=== PATIENT | female | born 1965 | race Caucasian/White ===

== ENCOUNTER 2017-04-06 13:54 | Outpatient (CLI) | payer OTHER ==
[2017-04-06 15:23] LABS: Hemoglobin 14.6 g/dL (12.0-16.0); Mean Corpuscular HGB CONC 33.5 g/dL (32.0-36.0); Mean Corpuscular Hemoglobin 32.6 pg (27.0-31.0); Mean Corpuscular Volume 97.4 fl (81.0-99.0); Platelet Count 222 thou/uL (130-400); Red Blood Cell (RBC) Count 4.49 mill/uL (4.20-5.40); White Blood Cell (WBC) Count 7.4 thou/uL (4.8-10.8)
[2017-04-06 15:29] LABS: PTT 26.7 SEC (22.9-36.1)
[2017-04-06 15:34] LABS: Prothrombin Time 13.3 SEC (12.0-14.7)
[2017-04-06 15:44] LABS: ALT (SGPT) 23 U/L (8-55); AST (SGOT) 19 U/L (5-34); Albumin 4.6 g/dL (3.5-5.0); Alkaline Phosphatase 84 U/L (40-150); Anion Gap 15 mmol/L (10-20); BUN (Urea Nitrogen) 15 mg/dL (9.8-20.1); Bilirubin, Total 0.5 mg/dL (0.2-1.2); Calc. Creatinine Clearance 0 mL/min (70-130); Calcium 9.9 mg/dL (7.8-10.44); Carbon Dioxide 27 mmol/L (22-29); Chloride 106 mmol/L (98-107); Estimated GFR-MDRD 55; Globulin 2.8 g/dL (2.4-3.5); Glucose 103 mg/dL (70-105); Potassium 4.5 mmol/L (3.5-5.1); Protein, Total 7.4 g/dL (6.0-8.3); Sodium 143 mmol/L (136-145)
--- NOTE | 2017-04-15 19:29 | EKG ---
Test Reason : Blood Pressure : / mmHG Vent. Rate : 088 BPM Atrial Rate : 088 BPM P-R Int : 174 ms QRS Dur : 140 ms QT Int : 400 ms P-R-T Axes : 031 003 015 degrees QTc Int : 484 ms Normal sinus rhythm Left bundle branch block Abnormal ECG No previous ECGs available Confirmed by OLI INMAN (2) on 04/15/2017 7:29:05 PM Referred By: REINA Confirmed By:OLI INMAN
== END 2017-04-06 13:55 | disposition home or self-care (01) ==
LOC: LABBT 13:54
PROVIDERS: ATTEND Internal Medicine Cardiovascular Disease
DX: Z01.818 Encounter for other preprocedural examination (principal); R94.30 Abnormal result of cardiovascular function study, unspecified
CPT/HCPCS: 80053; 85027; 85610; 85730; 93005; 93010

== ENCOUNTER 2017-04-08 05:54 | Day surgery (SDC) | payer OTHER ==
[2017-04-06 14:34] VITALS: BMI 31.1
[2017-04-08 07:06] LABS: Cardiac Risk 3.6 (Less than 4.5)
[2017-04-08] MEDS ORDERED: Midazolam HCl 2 mg/2 ml Vial ONE (09:10)
[2017-04-08] MEDS ORDERED: Fentanyl 100 MCG/2 ML VIAL ONE (09:14)
[2017-04-08] MEDS ORDERED: Iopamidol 370 76% 100 ML VIAL ONE (16:41)
== END 2017-04-08 13:09 | disposition home or self-care (01) ==
LOC: CCL 05:54
PROVIDERS: ATTEND Internal Medicine Cardiovascular Disease
DX: I25.10 Atherosclerotic heart disease of native coronary artery without angina pectoris (principal); Z91.013 Allergy to seafood; Z88.8 Allergy status to other drugs, medicaments and biological substances
CPT/HCPCS: 80061; 93458; 93798; 99152; C1769; J1644; J2250; J3010

== ENCOUNTER 2017-09-07 07:37 | Outpatient (CLI) | payer OTHER ==
--- NOTE | 2017-09-07 09:22 | MRI ---
MRI RIGHT HIP WITHOUT CONTRAST: HISTORY: 73.101A, unspecified sprain of right hip initial encounter. COMPARISON: None. FINDINGS: BONES: Left hip arthroplasty causes extensive artifact of the adjacent soft tissues. There is a small focus of avascular necrosis of the superior articular surface of the right femoral head without significan t articular surface collapse. There is T1 hypointense signal as well as T2 hyperintense signal withi n the area of avascular necrosis. No articular surface collapse. No stress edema of the acetabulum nor of the sacrum. There is mild edema of the pubic symphysis as w ell as extensive degenerative disease. TENDONS: There is marked extensive partial tearing of the gluteus medias tendon near its insertion in the grea ter trochanter. Mild iliopsoas tendinosis. 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 INTRAPELVIC SOFT TISSUES: Unremarkable. LABRUM: Evaluation of the labrum is limited without intraarticular contrast. No displaced labral tear is theresa reciated. There is moderate chondral thinning of the femoral head without significant delamination. IMPRESSION: 1. 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 2. Advanced degenerative disease of pubic symphysis. 3. Extensive partial tearing tendinosis gluteus medias tendon with mild intratrochanteric bursitis. 4. Mild iliopsoas tendonosis with small effusion. POS: [facility]
== END 2017-09-07 07:38 | disposition home or self-care (01) ==
LOC: TBSIIMAG 07:37
PROVIDERS: ATTEND Orthopaedic Surgery
DX: S76.011A Strain of muscle, fascia and tendon of right hip, initial encounter (principal); M87.251 Osteonecrosis due to previous trauma, right femur; M70.61 Trochanteric bursitis, right hip; M25.451 Effusion, right hip; M85.38 Osteitis condensans, other site